=== PATIENT | female | born 1960 | race Caucasian/White ===

== ENCOUNTER 2016-10-09 21:23 | Emergency (ER) | payer OTHER ==
[2016-10-09 21:47] VITALS: RESP 16; O2SAT 95
[2016-10-09] MEDS ORDERED: DOXYCYCLINE HYCLATE 100 MG CAP/TAB PO ONE (23:26)
--- NOTE | 2016-10-09 23:30 | EDPHY ---
H & P Stated Complaint: Tick at base of neck since yesterday-Hx Lyme Dz Source: Patient Exam Limitations: No limitations - Personal History Current Tetanus/Diphtheria Vaccine: Yes Current Tetanus Diphtheria and Acellular Pertussis (TDAP): Yes Tetanus Vaccine Date: 2010 - Medical/Surgical History Hx Asthma: No Hx Chronic Respiratory Disease: No Hx Diabetes: No Hx Cardiac Disease: No Hx Renal Disease: No Hx Cirrhosis: No Hx Alcoholism: No Hx HIV/AIDS: No Hx Splenectomy or Spleen Trauma: No Other PMH: Lyme Dz, Bartonella Dz, concussion, - Social History Smoking Status: Current some day smoker Time Seen by Provider: 10/09/16 22:49 HPI/ROS: CHIEF COMPLAINT: tick bite HISTORY OF PRESENT ILLNESS: 55-year-old female presents emergency department thinking your is a tick in the back of her head. Patient was hiking in a wooded area today. Patient lives on the [facility], is here looking for property to buy. Patient has a history of Lyme disease and is treated by her doctor back home. She is requesting to be placed on doxycycline for this. Patient reports a history intermittent high blood pressure with anxiety. She feels very stressed out right now. She denies headaches, chest pain, shortness of breath or blurred vision. Patient reports she feels like she has a cold sore coming on and is requesting a refill of her prescription for her valacyclovir. REVIEW OF SYSTEMS: A comprehensive 10 point review of systems is otherwise negative aside from elements mentioned in the history of present illness. (Neida Mendez) - Physical Exam Exam: Physical Exam Gen: Alert and Oriented, NAD HEENT: PERRL, moist mucous membranes NECK: no meningismus CV: regular rate and regular rhythm PULM: CTAB, no wheezes ABDOMEN: soft, non tender to palpation, BS present BACK: No CVA tenderness NEURO: Neurologically grossly intact EXTREMITIES: normal appearing SKIN: Tick to posterior occiput, removed with tweezers, no surrounding rash PSYCH: answers questions appropriately. (Neida Mendez) Constitutional: Initial Vital Signs Temperature (C) 37.4 C 10/09/16 21:41 Heart Rate 118 H 10/09/16 21:41 Respiratory Rate 16 10/09/16 21:41 Blood Pressure 169/112 H 10/09/16 21:41 O2 Sat (%) 95 10/09/16 21:41 Allergies/Adverse Reactions: No Known Allergies Allergy (Unverified 10/09/16 21:47) Home Medications: Medication Instructions Recorded Doxycycline Hyclate 100 mg PO BID #40 tab 10/09/16 Valacyclovir HCl [Valacyclovir] 500 mg PO DAILY #7 tablet 10/09/16 Medical Decision Making Other Provider: PHYSICIAN DOCUMENTATION: The patient was evaluated and managed by the [facility]. My co- signature indicates that I have reviewed this chart and I agree with the findings and plan of care as documented. I am the secondary supervising physician. (Jaquelin Soria) - Data Points Medications Given: Discontinued Medications Doxycycline Hyclate (Doxycycline Hyclate) 100 mg PO EDNOW ONE PRN Reason: Protocol Stop: 10/09/16 23:27 Last Admin: 10/10/16 00:11 Dose: 100 mg Doxycycline Hyclate (Vibramycin 100 Mg Prepack#2) 1 btl TAKEHOME EDNOW ONE Stop: 10/09/16 23:42 Last Admin: 10/10/16 00:12 Dose: 1 btl Departure - Departure Disposition: Home, Routine, Self-Care Clinical Impression: Elevated blood pressure reading, Medication refill Tick bite of head Qualifiers: Encounter type: initial encounter Qualified Code(s): S00.96XA - Insect bite ( nonvenomous) of unspecified part of head, initial encounter Condition: Good Instructions: Tick Bite (ED), Hypertension (ED) Additional Instructions: Take your antibiotics as prescribed, follow up with your doctor on return home. Your blood pressure is elevated. You need to follow up with your doctor about this as well on return home. Return to the emergency department for any headaches, blurred vision, chest pain or shortness of breath. Referrals: LALO BURKS [Other] - As per Instructions Prescriptions: Doxycycline Hyclate 100 mg PO BID #40 tab Valacyclovir HCl [Valacyclovir] 500 mg PO DAILY #7 tablet
[2016-10-09] MEDS ORDERED: DOXYCYCLINE 100 MG PREPACK#2 BTL TAKEHOME ONE (23:41)
[2016-10-09 23:54] VITALS: PULSE 85; TEMP 99
[2016-10-10 00:10] VITALS: BP 168/113
== END 2016-10-10 00:08 | disposition home or self-care (01) ==
DX: S00.96XA Insect bite (nonvenomous) of unspecified part of head, initial encounter (principal); F17.200 Nicotine dependence, unspecified, uncomplicated; R03.0 Elevated blood-pressure reading, without diagnosis of hypertension; Z76.0 Encounter for issue of repeat prescription; W57.XXXA Bitten or stung by nonvenomous insect and other nonvenomous arthropods, initial encounter; Y99.8 Other external cause status